=== PATIENT | male | born 1970 | race Caucasian/White ===

== ENCOUNTER 2021-04-21 11:04 | Emergency (ER) | payer OTHER ==
[~2021-04-21] VITALS: Ht 182.9 cm; Wt 104.5 kg
[2021-04-21 11:28] VITALS: TEMP 98.2
[2021-04-21] MEDS ORDERED: BACTRIM DS 8001 TAB PO (14:19)
[2021-04-21] MEDS ORDERED: NORCO 325 MG-51 TAB PO (14:19)
[2021-04-21 14:39] VITALS: BP 140/108; PULSE 72
== END 2021-04-21 14:43 | disposition home or self-care (01) ==
LOC: COL.ER 11:04
DX: S61.232A Puncture wound without foreign body of right middle finger without damage to nail, initial encounter (principal); R03.0 Elevated blood-pressure reading, without diagnosis of hypertension; Z23 Encounter for immunization; W45.8XXA Other foreign body or object entering through skin, initial encounter; Y92.59 Other trade areas as the place of occurrence of the external cause; Y99.0 Civilian activity done for income or pay
CPT/HCPCS: J0690